=== PATIENT | male | born 1965 | race Caucasian/White ===

== ENCOUNTER 2016-06-27 20:34 | Observation (INO) | payer BC ==
--- NOTE | 2016-06-27 20:43 | PDOC ---
History of Present Illness - General History Source: Patient <Alfonso Anderson - Last Filed: 06/27/16 22:05> - General History Source: Patient Exam Limitations: No Limitations - History of Present Illness Initial Comments: 06/27/16 20:55 The patient is a 51 year old male with significant past medical history of CAD, s/p stents x2 (July 2015), hypertension, hyperlipidemia, diabetes and TIA who presents to the ED for 2 days of left sternal border chest pain. Patient describes his chest pain as nonradiating, pressure like sensation, squeezing in nature and 8/10, in severity. Denies exacerbating or alleviating factors. Denies diaphoresis, lightheadedness, SOB, shoulder pain, arm pain, jaw pain, nausea, or vomiting. States he is compliant with his medications. The patient denies fever, chills, cough, abdominal pain, and diarrhea. Allergies: nitroglycerine Social History: No alcohol, tobacco, or drug use reported. Past Surgical History: s/p cardiac stents x2 (July 2015), R knee and L ankle sx PCP: Dr. Latoya Bullock School Bus Driver: Dr. Vergara <Hoa Suarez - Last Filed: 06/27/16 22:35> - General Chief Complaint: Chest Pain Stated Complaint: CHEST PAIN Time Seen by Provider: 06/27/16 20:43 Past History - Past Medical History Diabetes: Yes GI Disorders: Yes (COLITIS) HTN: Yes - Surgical History Orthopedic Surgery: Yes (R. Knee, L. Ankle) - Immunization History Immunization Up to Date: Yes - Psycho/Social/Smoking Cessation Hx Anxiety: No Suicidal Ideation: No Smoking Status: No Smoking History: Never smoked Have you smoked in the past 12 months: No Number of Cigarettes Smoked Daily: 0 Cigars Per Day: 0 Hx Alcohol Use: No Drug/Substance Use Hx: No Substance Use Type: None Hx Substance Use Treatment: No <Alfonso Anderson - Last Filed: 06/27/16 22:05> <Hoa Suarez - Last Filed: 06/27/16 22:35> - Past Medical History Allergies/Adverse Reactions: Allergies Allergy/AdvReac Type Severity Reaction Status Date / Time nitroglycerin Allergy Verified 06/27/16 20:42 Home Medications: Ambulatory Orders Clopidogrel Bisulfate [Plavix -] 75 mg PO DAILY #30 tablet 08/06/15 Cyclobenzaprine HCl [Flexeril -] 5 mg PO Q8H PRN #30 tablet 08/06/15 Metformin HCl [Glucophage -] 1,000 mg PO BID@0700,1630 #60 tablet 08/06/15 Ramipril [Altace] 5 mg PO DAILY #30 capsule 08/06/15 Aspirin [ASA -] 81 mg PO DAILY 08/24/15 Atorvastatin Ca [Lipitor] 10 mg PO DAILY 08/24/15 Duloxetine HCl [Cymbalta] 20 mg PO DAILY 08/24/15 Glimepiride 2 mg PO BID 08/24/15 Insulin Detemir [Levemir Flextouch] 0 unit SQ BID 08/24/15 Meloxicam 7.5 mg PO PRN 08/24/15 Metoprolol Succinate [Toprol Xl] 50 mg PO DAILY 08/24/15 Review of Systems - Review of Systems Able to Perform ROS?: Yes Comments:: 06/27/16 20:55 CONSTITUTIONAL: Absent: fever, chills, diaphoresis, generalized weakness, malaise, loss of appetite HEENT: Absent: rhinorrhea, nasal congestion, throat pain, throat swelling, difficulty swallowing, mouth swelling, ear pain, eye pain, visual Changes CARDIOVASCULAR: +left sternal border chest pain Absent: syncope, palpitations, irregular heart rate, lightheadedness, peripheral edema RESPIRATORY: Absent: cough, shortness of breath, dyspnea with exertion, orthopnea, wheezing, stridor, hemoptysis GASTROINTESTINAL: Absent: abdominal pain, abdominal distension, nausea, vomiting, diarrhea, constipation, melena, hematochezia GENITOURINARY: Absent: dysuria, frequency, urgency, hesitancy, hematuria, flank pain, genital pain MUSCULOSKELETAL: Absent: myalgia, arthralgia, joint swelling SKIN: Absent: rash, itching, pallor NEUROLOGIC: Absent: headache, focal weakness or paresthesias, dizziness, unsteady gait, seizure, mental status changes, bladder or bowel incontinence <Hoa Suarez - Last Filed: 06/27/16 22:35> *Physical Exam - Vital Signs Last Vital Signs Temp Pulse Resp BP Pulse Ox 98.6 F 97 H 16 155/90 99 06/27/16 20:42 06/27/16 20:42 06/27/16 20:42 06/27/16 20:42 06/27/16 20:42 - Physical Exam Comments: 06/27/16 20:55 GENERAL: Well developed, well nourished. Awake and alert. Mild distress. HEENT: Normocephalic, atraumatic. PERRLA, EOMI. No conjunctival pallor. Sclera are non- icteric. Moist mucous membranes. Oropharynx is clear. NECK: Supple. Full ROM. No JVD. Carotid pulses 2+ and symmetric, without bruits. No thyromegaly. No lymphadenopathy. CARDIOVASCULAR: Regular rate and rhythm. No murmurs, rubs, or gallops. Distal pulses are 2+ and symmetric. PULMONARY: No evidence of respiratory distress. Lungs clear to auscultation bilaterally. No wheezing, rales or rhonchi. ABDOMINAL: Soft. Non-tender. Non-distended. No rebound or guarding. No organomegaly. Normoactive bowel sounds. MUSCULOSKELETAL Normal range of motion at all joints. No bony deformities or tenderness. No CVA tenderness. EXTREMITIES: No cyanosis. No clubbing. No edema. No calf tenderness. SKIN: Warm and dry. Normal capillary refill. No rashes. No jaundice. NEUROLOGICAL: Alert, awake, appropriate. Cranial nerves 2-12 intact. No deficits to light touch and temperature in face, upper extremities and lower extremities. No motor deficits in the in face, upper extremities and lower extremities. Normoreflexic in the upper and lower extremities. Normal speech. <Hoa Suarez - Last Filed: 06/27/16 22:35> Heart Score/ECG Review - ECG Impressions Comment:: 06/27/16 20:59 NSR with sinus arrhythmia @89bpm Possible L atrial enlargement Incomplete RBBB Borderline ECG <Hoa Suarez - Last Filed: 06/27/16 22:35> ED Treatment Course - LABORATORY CBC & Chemistry Diagram: 06/27/16 21:00 06/27/16 21:00 <Alfonso Anderson - Last Filed: 06/27/16 22:05> - LABORATORY CBC & Chemistry Diagram: 06/27/16 21:00 06/27/16 21:00 <Hoa Suarez - Last Filed: 06/27/16 22:35> Medical Decision Making - Medical Decision Making 06/27/16 22:05 Dr. Anderson: The scribe's documentation has been prepared under my direction and personally reviewed by me in its entirery. I confirm that the note above accurately reflects all work, treatment, procedures, and medical decision making performed by me. <Alfonso Anderson - Last Filed: 06/27/16 22:05> - Medical Decision Making 06/27/16 22:[address] Latoya Bullock (via answering service) at 22:22 Awaiting call back 06/27/16 22:24 Patient's case discussed with Dr. Bullock at 22:24 <Hoa Suarez - Last Filed: 06/27/16 22:35> *DC/Admit/Observation/Transfer - Discharge Dispostion Admit: Yes <Alfonso Anderson - Last Filed: 06/27/16 22:05> - Attestations Scribe Attestion: 06/27/16 20:56 Documentation prepared by Hoa Suarez, acting as director medical science for Alfonso Anderson MD/DO <Hoa Suarez - Last Filed: 06/27/16 22:35> Diagnosis at time of Disposition: Chest pain Qualifiers: Chest pain type: unspecified Qualified Code(s): R07.9 - Chest pain, unspecified - Referrals
[2016-06-27 20:44] VITALS: BMI 32.3
[2016-06-27] MEDS ORDERED: METOPROLOL TARTRATE 5 MG/5 ML VIAL IVPUSH ONE (20:44)
[2016-06-27] MEDS ORDERED: NITROGLYCERIN 2% OINTMENT - 1GM PACKET TD ONE ×2 (20:44→21:17)
[2016-06-27] MEDS ORDERED: morphine CARPU-JECT 2 MG/1 ML DISP.SYRIN IVPUSH ONE (20:47)
[2016-06-27] MEDS ORDERED: ONDANSETRON 4 MG/2 ML VIAL IVPUSH STA (20:47)
[2016-06-27 21:10] LABS: BASOPHIL 1.3 % (0-2.0); EOSINOPHIL 0.8 % (0-4.5); MCH 23.8 pg (25.7-33.7); MCHC 32.2 g/dl (32.0-35.9); MEAN CELL VOLUME 73.8 fl (80-96); MEAN PLT VOLUME 8.9 fl (7.5-11.1); NEUTROPHILS 56.8 % (42.8-82.8); PLATELET COUNT 317 K/MM3 (134-434); WHITE BLOOD COUNT 9.3 K/mm3 (4.0-10.0)
[2016-06-27] MEDS ORDERED: morphine CARPU-JECT 2 MG/1 ML DISP.SYRIN ONE (21:16)
[2016-06-27] MEDS ORDERED: ONDANSETRON 4 MG/2 ML VIAL ONE (21:17)
[2016-06-27] MEDS ORDERED: METOPROLOL TARTRATE 5 MG/5 ML VIAL ONE (21:17)
[2016-06-27 21:29] LABS: INR 1.12 (0.82-1.09); PROTHROMBIN TIME (PATIENT) 12.3 SEC (9.98-11.88)
[2016-06-27 21:38] LABS: ALBUMIN 3.9 g/dl (3.4-5.0); ANION GAP 13 (8-16); BILIRUBIN,TOTAL 0.4 mg/dL (0.2-1.0); CALCIUM 9.3 mg/dL (8.5-10.1); CO2 24 mmol/L (21-32); COCKROFT - GAULT 121.79; CREATININE 0.9 mg/dL (0.7-1.3); GLUCOSE,RANDOM 174 mg/dL (74-106); MAGNESIUM 1.8 mg/dL (1.8-2.4); SGOT/AST 36 U/L (15-37); SGPT/ALT 81 U/L (12-78); TOT PROT 7.5 g/dl (6.4-8.2)
[2016-06-27 21:41] LABS: ALK PHOS 95 U/L (45-117); TROPONIN I < 0.02 ng/ml (0.00-0.05)
[2016-06-28] MEDS: INSULIN SLIDING SCALE (NOVOLOG) 1 VIAL SQ SCH ×3 (06:28→16:37)
[2016-06-28] MEDS: metFORMIN HCL 500 MG TABLET (FP) PO SCH ×2 (06:28→16:59)
[2016-06-28] MEDS ORDERED: GLIMEPIRIDE 2 MG TABLET (FP) PO SCH (07:00)
--- NOTE | 2016-06-28 08:01 | HP ---
Admitting History and Physical - Admission History of Present Illness: 51 year old male with significant past medical history of CAD, s/p stents x2 ( July 2015), hypertension, hyperlipidemia, diabetes and TIA who presents to the ED for 2 days of left sternal border chest pain. Patient describes his chest pain as nonradiating, pressure like sensation, squeezing in nature and 8/10, in severity. Denies exacerbating or alleviating factors. Denies diaphoresis, lightheadedness, SOB, shoulder pain, arm pain, jaw pain, nausea, or vomiting. States he is compliant with his medications. 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 Cardiovascular: Yes: CAD (S/P STENTING), HTN, Hyperlipdemia (pt denies) Gastrointestinal: Yes: Other (ROELLANA) Hepatobiliary: Yes: Other (ORELLANA) Musculoskeletal: Yes: Chronic low back pain, Other (chronic neck pain, left ankle pain since accident 4 years ago) Endocrine: Yes: Diabetes Mellitus - Past Surgical History Past Surgical History: Yes: None - Smoking History Smoking history: Never smoked Have you smoked in the past 12 months: No Aproximately how many cigarettes per day: 0 - Alcohol/Substance Use Hx Alcohol Use: No History of Substance Use: reports: None - Social History Occupation: Has not worked since the ankle accident 4 ya. 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 Home Medications - Allergies Allergies/Adverse Reactions: Allergies Allergy/AdvReac Type Severity Reaction Status Date / Time nitroglycerin Allergy Verified 06/27/16 20:42 - Home Medications Home Medications: Ambulatory Orders Clopidogrel Bisulfate [Plavix -] 75 mg PO DAILY #30 tablet 08/06/15 Cyclobenzaprine HCl [Flexeril -] 5 mg PO Q8H PRN #30 tablet 08/06/15 Metformin HCl [Glucophage -] 1,000 mg PO BID@0700,1630 #60 tablet 08/06/15 Ramipril [Altace] 5 mg PO DAILY #30 capsule 08/06/15 Aspirin [ASA -] 81 mg PO DAILY 08/24/15 Atorvastatin Ca [Lipitor] 80 mg PO DAILY 08/24/15 Duloxetine HCl [Cymbalta] 20 mg PO DAILY 08/24/15 Glimepiride 2 mg PO BID 08/24/15 Insulin Detemir [Levemir Flextouch] 0 unit SQ BID 08/24/15 Meloxicam 7.5 mg PO PRN 08/24/15 Metoprolol Succinate [Toprol Xl] 50 mg PO DAILY 08/24/15 Family Disease History - Family Disease History Family Disease History: CA: Mother (breast cancer) Review of Systems - Review of Systems Cardiovascular: reports: Chest Pain. denies: Edema Respiratory: reports: SOB, SOB on Exertion Gastrointestinal: denies: Abdominal Pain Genitourinary: reports: No Symptoms Neurological: reports: No Symptoms Physical Examination Vital Signs: Vital Signs Temperature 97.8 F 06/28/16 06:00 Pulse Rate 62 06/28/16 06:00 Respiratory Rate 18 06/28/16 06:00 Blood Pressure 139/70 06/28/16 06:00 O2 Sat by Pulse Oximetry (%) 97 06/28/16 04:02 Neck: Yes: Supple Cardiovascular: Yes: Regular Rate and Rhythm Respiratory: Yes: Regular, CTA Bilaterally Gastrointestinal: Yes: Normal Bowel Sounds, Soft Musculoskeletal: Yes: Other (CW TENDERNESS) Imaging - Results Chest X-ray: Report Reviewed Problem List - Problems (1) Chest pain Assessment/Plan: R/O ISTHMIC PAIN MAYBE COMPONENT OF MUSCULAR STRESS TEST Code(s): R07.9 - CHEST PAIN, UNSPECIFIED Qualifiers: Chest pain type: unspecified Qualified Code(s): R07.9 - Chest pain, unspecified (2) Diabetes Assessment/Plan: [facility] Code(s): E11.9 - TYPE 2 DIABETES MELLITUS WITHOUT COMPLICATIONS Qualifiers: Diabetes mellitus type: type 2 (3) HTN (hypertension) Assessment/Plan: MONITOR ON MEDS Code(s): I10 - ESSENTIAL (PRIMARY) HYPERTENSION (4) CAD (coronary artery disease) Assessment/Plan: S/P STENTING' CONTINUE WITH MEDS ABOVE Code(s): I25.10 - ATHSCL HEART DISEASE OF [place] CORONARY ARTERY W/O ANG PCTRS
[2016-06-28 08:05] LABS: BASOPHIL 0.9 % (0-2.0); MCH 23.7 pg (25.7-33.7); MCHC 32.2 g/dl (32.0-35.9); MEAN CELL VOLUME 73.5 fl (80-96); MEAN PLT VOLUME 8.4 fl (7.5-11.1); NEUTROPHILS 51.6 % (42.8-82.8); PLATELET COUNT 241 K/MM3 (134-434); RDW 17.9 % (11.9-15.9); WHITE BLOOD COUNT 6.3 K/mm3 (4.0-10.0)
[2016-06-28 08:30] LABS: ALBUMIN 3.5 g/dl (3.4-5.0); ANION GAP 6 (8-16); BILIRUBIN,TOTAL 0.4 mg/dL (0.2-1.0); CALCIUM 8.5 mg/dL (8.5-10.1); CHOLESTEROL 120 mg/dL (50-200); CO2 31 mmol/L (21-32); COCKROFT - GAULT 156.59; CREATININE 0.7 mg/dL (0.7-1.3); GLUCOSE,RANDOM 146 mg/dL (74-106); LDL CHOLESTEROL (ONLY SJRH) 72 mg/dL (5-100); SGOT/AST 34 U/L (15-37); SGPT/ALT 75 U/L (12-78)
[2016-06-28 08:32] LABS: ALK PHOS 86 U/L (45-117); TOT PROT 6.7 g/dl (6.4-8.2); TROPONIN I < 0.02 ng/ml (0.00-0.05)
[2016-06-28] MEDS ORDERED: ASPIRIN 81 MG CHEWABLE TABLETS PO SCH (10:00)
[2016-06-28] MEDS ORDERED: METOPROLOL SUCCINATE 50 MG TAB.SR.24H (FP) PO SCH (10:00)
[2016-06-28] MEDS ORDERED: ASPIRIN COATED 81 MG TABLET.EC PO SCH (10:00)
[2016-06-28] MEDS ORDERED: HEPARIN NA (PORCINE) 5,000 UNITS/ML 1ML VIAL SQ SCH (10:00)
[2016-06-28] MEDS ORDERED: CLOPIDOGREL BISULFATE 75 MG TABLET (FP) PO SCH (10:00)
[2016-06-28] MEDS ORDERED: RAMIPRIL 5 MG CAPSULE (FP) PO SCH (10:00)
[2016-06-28] MEDS ORDERED: DULoxetine HCL 20 MG CAPSULE.DR (FP) PO SCH (10:00)
--- NOTE | 2016-06-28 13:48 | CON.CARD ---
Consult Consult Specialty:: Cardiology Referred by:: Dr Bullock Reason for Consultation:: chest pain - History of Present Illness Chief Complaint: chest pain History of Present Illness: He is a 51 year old man 50 yo male with a history of NIDDMDM, HTN, hyperlipidemia, TIA (08/03/15 at [facility]), CAD, s/p PCI of RCA and PDA at [facility] [place] on 08/24/15 who was admitted with 3 days of nonexertional chest pain, along the left costochondral margin that is episodic and nonexertional, lasts about 5 minutes at a time and is different from his original anginal pain. No associated symptoms. No orthopnea pnd or edema. He underwent a nuclear stress test today 8:01 adriel to 86% MPHR, normal perfusion. EF 50%. 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 Cardio/Vascular: Yes: CAD (S/P STENTING), HTN, Hyperlipdemia (pt denies) Gastrointestinal: Yes: Other (ORELLANA) Hepatobiliary: Yes: Other (ORELLANA) Musculoskeletal: Yes: Chronic low back pain, Other (chronic neck pain, left ankle pain since accident 4 years ago) Endocrine: Yes: Diabetes Mellitus - Past Surgical History Past Surgical History: Yes: None - Alcohol/Substance Use Hx Alcohol Use: No History of Substance Use: reports: None - Smoking History Smoking history: Never smoked Have you smoked in the past 12 months: No Aproximately how many cigarettes per day: 0 - Social History Usual Living Arrangement: With Spouse (2nd ) Occupation: Has not worked since the ankle accident 4 ya. 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 Home Medications - Allergies Allergies/Adverse Reactions: Allergies Allergy/AdvReac Type Severity Reaction Status Date / Time nitroglycerin Allergy Verified 06/27/16 20:42 - Home Medications Home Medications: Ambulatory Orders Clopidogrel Bisulfate [Plavix -] 75 mg PO DAILY #30 tablet 08/06/15 Cyclobenzaprine HCl [Flexeril -] 5 mg PO Q8H PRN #30 tablet 08/06/15 Metformin HCl [Glucophage -] 1,000 mg PO BID@0700,1630 #60 tablet 08/06/15 Ramipril [Altace] 5 mg PO DAILY #30 capsule 08/06/15 Aspirin [ASA -] 81 mg PO DAILY 08/24/15 Atorvastatin Ca [Lipitor] 80 mg PO DAILY 08/24/15 Duloxetine HCl [Cymbalta] 20 mg PO DAILY 08/24/15 Glimepiride 2 mg PO BID 08/24/15 Insulin Detemir [Levemir Flextouch] 0 unit SQ BID 08/24/15 Meloxicam 7.5 mg PO PRN 08/24/15 Metoprolol Succinate [Toprol Xl] 50 mg PO DAILY 08/24/15 Family Disease History - Family Disease History Family History: Denies Family Disease History: CA: Mother (breast cancer) Review of Systems - Review of Systems Constitutional: reports: No Symptoms Eyes: reports: No Symptoms HENT: reports: No Symptoms Neck: reports: No Symptoms Cardiovascular: reports: Chest Pain Respiratory: reports: No Symptoms Gastrointestinal: reports: No Symptoms Vital Signs: Vital Signs Temperature 97.8 F 06/28/16 06:00 Pulse Rate 62 06/28/16 06:00 Respiratory Rate 18 06/28/16 06:00 Blood Pressure 139/70 06/28/16 06:00 O2 Sat by Pulse Oximetry (%) 97 06/28/16 04:02 Constitutional: Yes: Well Nourished, No Distress Eyes: Yes: Conjunctiva Clear HENT: Yes: Atraumatic, Normocephalic Neck: Yes: Supple, Trachea Midline Respiratory: Yes: CTA Bilaterally Gastrointestinal: Yes: Normal Bowel Sounds, Soft Cardiovascular: Yes: Regular Rate and Rhythm JVD: No Carotid Bruit: No PMI: Non-Displaced Heart Sounds: Yes: S1, S2 Edema: No Peripheral Pulses WNL: Yes - Other Data Labs, Other Data: CBC, BMP 06/28/16 05:40 06/28/16 05:40 INR, PTT INR 1.12 (0.82-1.09) 06/27/16 21:00 Troponin, BNP 06/28/16 05:40 Troponin I < 0.02 Troponin, BNP 06/28/16 05:40 Troponin I < 0.02 Imaging - Results Chest X-ray: Report Reviewed (matthew) EKG: Report Reviewed (no changes) Problem List - Problems (1) CAD (coronary artery disease) Assessment/Plan: stable on dual antiplatelet therapy. He needs at least one year. I doubt that this episode reflects angina. No further testing is needed as an inpatient. Code(s): I25.10 - ATHSCL HEART DISEASE OF [place] CORONARY ARTERY W/O ANG PCTRS Qualifiers: Coronary Disease-Associated Artery/Lesion type: [place] artery [place] vs. transplanted heart: [place] heart Associated angina: without angina Qualified Code(s): I25.10 - Atherosclerotic heart disease of [place] coronary artery without angina pectoris (2) Chest pain Assessment/Plan: Likely muscular. Treat with tylenol. No need for further inpatient cardiac workup. Code(s): R07.9 - CHEST PAIN, UNSPECIFIED Qualifiers: Chest pain type: unspecified Qualified Code(s): R07.9 - Chest pain, unspecified
[2016-06-28] MEDS ORDERED: PT OWN MED DRAWER 7, Y5N ONE (14:25)
[2016-06-28] MEDS ORDERED: ACETAMINOPHEN 325 MG TABLET (FP) ONE (14:34)
--- NOTE | 2016-06-28 17:20 | EKG ---
Test Reason : Blood Pressure : / mmHG Vent. Rate : 071 BPM Atrial Rate : 071 BPM P-R Int : 132 ms QRS Dur : 098 ms QT Int : 360 ms P-R-T Axes : 059 013 041 degrees QTc Int : 391 ms NORMAL SINUS RHYTHM NORMAL ECG WHEN COMPARED WITH ECG OF 27-JUN-2016 20:40, NO SIGNIFICANT CHANGE WAS FOUND Confirmed by CHARLIE HAAS MD ([id number]) on 06/28/2016 5:20:13 PM Referred By: TIGRE ESPOSITO Confirmed By:CHARLIE HAAS MD
--- NOTE | 2016-06-28 17:27 | EKG ---
Test Reason : Blood Pressure : / mmHG Vent. Rate : 089 BPM Atrial Rate : 089 BPM P-R Int : 132 ms QRS Dur : 102 ms QT Int : 336 ms P-R-T Axes : 054 010 034 degrees QTc Int : 408 ms NORMAL SINUS RHYTHM WITH SINUS ARRHYTHMIA POSSIBLE LEFT ATRIAL ENLARGEMENT INCOMPLETE RIGHT BUNDLE BRANCH BLOCK BORDERLINE ECG WHEN COMPARED WITH ECG OF 24-AUG-2015 14:28, NO SIGNIFICANT CHANGE WAS FOUND Confirmed by WALDO LAUGHLIN, CHARLIE ([id number]) on 06/28/2016 5:27:14 PM Referred By: Confirmed By:CHARLIE HAAS MD
[2016-06-28] MEDS ORDERED: IBUPROFEN 400 MG TABLET (FP) PO ONE (18:30)
[2016-06-28 19:25] VITALS: TEMP 98.3
[2016-06-28 20:34] VITALS: BP 126/80; PULSE 75
[2016-06-28] MEDS ORDERED: ATORVASTATIN CA 40 MG TABLET (FP) PO SCH (22:00)
== END 2016-06-28 20:51 | disposition home or self-care (01) ==
LOC: JER 20:34 → JERBED 22:04 → INTOOBSV 22:04 → J4W 06-28 03:08
PROVIDERS: ADMIT Family Medicine; ATTEND Family Medicine
PROC: 3E033NZ Introduction of Analgesics, Hypnotics, Sedatives into Peripheral Vein, Percutaneous Approach (ICD-10-PCS; principal; 2016-06-27)
PROC: 3E033GC Introduction of Other Therapeutic Substance into Peripheral Vein, Percutaneous Approach (ICD-10-PCS; 2016-06-27)
DX: R07.9 Chest pain, unspecified (principal); E11.9 Type 2 diabetes mellitus without complications; I10 Essential (primary) hypertension; I25.10 Atherosclerotic heart disease of native coronary artery without angina pectoris; Z95.5 Presence of coronary angioplasty implant and graft; E78.5 Hyperlipidemia, unspecified; Z86.73 Personal history of transient ischemic attack (TIA), and cerebral infarction without residual deficits
CPT/HCPCS: 36415; 71010-TC; 78452-TC; 80053; 80061; 82550; 83036; 83721; 83735; 84484; 85025; 85610; 93005; 93010; 93017; 99284-25; A9502; G0378

== ENCOUNTER 2018-03-31 08:10 | Day surgery (SDC) | payer BC ==
[2018-03-28 12:33] VITALS: BMI 31.3
[2018-03-31] MEDS ORDERED: PROPOFOL 20 ML ONE ×2 (11:07→14:07)
[2018-03-31] MEDS ORDERED: MIDAZOLAM HCL 2 MG/2 ML SINGLE DOSE VIAL ONE ×2 (11:07→13:40)
[2018-03-31] MEDS ORDERED: DEXAMETHASONE SOD PHOSPHATE 4 MG/1 ML VIAL ONE (11:08)
[2018-03-31] MEDS ORDERED: LIDOCAINE HCL/PF 2% SDV 5ML VIAL ONE ×2 (11:08→14:08)
[2018-03-31] MEDS ORDERED: ceFAZolin SODIUM 1 GM VIAL ONE (14:04)
[2018-03-31] MEDS ORDERED: ceFAZolin SODIUM 1 GM VIAL IVPB ONE (14:05)
[2018-03-31] MEDS ORDERED: ESMOLOL HCL 100,000 MCG/10 ML VIAL ONE (14:15)
[2018-03-31] MEDS ORDERED: KETOROLAC TROMETHAMINE 30 MG/1 ML VIAL ONE (14:24)
[2018-03-31] MEDS ORDERED: BUPIVACAINE HCL/PF 0.5% (5MG/ML) 10 ML VIAL IJ ONE (15:00)
[2018-03-31] MEDS ORDERED: BACITRACIN 15 GM TUBE TOPICAL OINTMENT TP ONE (15:01)
[2018-03-31] MEDS ORDERED: oxyCODONE HCL 5 MG TABLET PO PRN ×2 (15:12)
[2018-03-31] MEDS ORDERED: ONDANSETRON 4 MG/2 ML VIAL IVPUSH PRN (15:12)
[2018-03-31] MEDS ORDERED: LACTATED RINGERS SOLUTION 1,000 ML IV SCH (15:15)
[2018-03-31] MEDS ORDERED: GLYCOPYRROLATE 0.2 MG/1 ML VIAL ONE (16:24)
--- NOTE | 2018-03-31 17:07 | OP ---
Operative Note - Note: Operative Date: 03/31/18 Pre-Operative Diagnosis: penile deformity and phimosis Operation: circumcision and penoplasty Surgeon: Akira Baldwin Anesthesia: General Specimens Removed: preputial skin and area of glans penis
[2018-03-31 18:17] VITALS: TEMP 97.8
[2018-03-31 19:30] VITALS: BP 135/76; PULSE 82
--- NOTE | 2018-04-02 14:38 | PATH ---
Surgical Pathology Report Patient Name: SONIA SALOMON [facility]. Rec. #: [id number] /Age/Gender: 1965 (Age: 53) / M Account: [id number] Location: [facility] SURGICAL Taken: 03/31/2018 Received: 04/01/2018 Reported: 04/02/2018 Physicians: Akira Baldwin Specimen(s) Received A: FORESKIN B: GLANS PENIS Clinical History Phimosis Final Diagnosis A. FORESKIN, CIRCUMCISION: FORESKIN. B. GLANS PENIS, EXCISION: GENITAL SKIN WITH MILD CHRONIC INFLAMMATION. Electronically Signed Meche Davis M.D. Gross Description A. Received in formalin labeled "foreskin," are 3 farley, irregular, wrinkled portions of skin, consistent with foreskin. The specimens range from 1.3 x 0.3 x 0.1 cm to 2.5 x 1.6 x 1.2 cm. No discrete lesions are identified. Government Program Manager sections are submitted in one cassette. B. Received in formalin labeled "glans penis" is a 0.5 x 0.3 x 0.2 cm farley, irregular portion of soft tissue. The specimen is submitted in toto in one cassette. 04/01/201804/01/2018
--- NOTE | 2018-04-11 09:59 | OP ---
DATE OF OPERATION: 03/31/2018 REOPERATIVE DIAGNOSES: Penile deformity and phimosis. POSTOPERATIVE DIAGNOSES: Penile deformity and phimosis. PROCEDURE: Circumcision and penoplasty. ATTENDING: Mana Wall MD ANESTHESIA: General: OPERATION WENT FOLLOWS: The patient has a history of a significant phimosis with recurrent scarring of the frenulum causing penile curvature. The patient is undergoing a circumcision and penoplasty to correct these 2 entities. The patient and his family have been given all the risks and benefits of the procedure. They agreed to the procedure in order to minimize further injury to the penis. The patient was brought in the operating room, placed in supine position on the operating room table. Antibiotics were given preoperatively for surgical prophylaxis. The patient's status as to allergies to medication is noted. At this point, the patient was prepped and draped in the usual sterile manner. The distal preputial skin is excised utilizing the guillotine technique. At this point, the proximal penile skin below the glans is cut to allow a 1.5 cm fringe below the glans. The frenulum and scarred aspects of the glans are excised and sent for specimen. At this point, hemostasis is obtained utilizing electrocauterization circumferentially. A stay stitch is placed in the glans at the level of the frenular insertion. With traction, the glans is then reapproximated with interrupted chromic stitches. A 2-layer closure is utilized for the glans. At this point, the subcutaneous tissue is reapproximated circumferentially. With this accomplished, interrupted chromic stitches are placed circumferentially to reapproximate the penile skin. Excellent hemostasis was obtained, no complications were noted. A dressing is placed at the end of the procedure. The stay suture is removed. Marcaine was injected preoperatively and postoperatively in order to minimize anesthesia. MANA WALL M.D. [id number]
== END 2018-03-31 19:15 | disposition home or self-care (01) ==
LOC: JASU-SURG 08:10
PROVIDERS: ATTEND Urology
PROC: 0VTTXZZ Resection of Prepuce, External Approach (ICD-10-PCS; principal; 2018-03-31 10:00)
PROC: 0VNS0ZZ Release Penis, Open Approach (ICD-10-PCS; 2018-03-31 10:00)
DX: N47.1 Phimosis (principal); Q55.61 Curvature of penis (lateral)
CPT/HCPCS: 82962; 88304-TC; 94760

== ENCOUNTER 2020-04-06 16:54 | Inpatient (IN) | payer BC ==
[2020-04-06 18:29] LABS: BASO % 0.6 % (0-2.0); HEMATOCRIT 45.5 % (35.4-49); HEMOGLOBIN 15.3 GM/dL (11.7-16.9); LYMPH % 22.7 % (8-40); MCH 29.6 pg (25.7-33.7); MCHC 33.7 g/dl (32.0-35.9); MEAN CELL VOLUME 87.9 fl (80-96); MEAN PLT VOLUME 8.2 fl (7.5-11.1); MONO % 11.6 % (3.8-10.2); NEUT % 65.1 % (42.8-82.8); PLATELET COUNT 207 K/MM3 (134-434); RBC 5.18 M/mm3 (4.00-5.60); RDW 15.4 % (11.9-15.9); WHITE BLOOD COUNT 3.7 K/mm3 (4.0-10.0)
[2020-04-06 18:41] LABS: INR 1.24 (0.83-1.09); PROTHROMBIN TIME (PATIENT) 15.1 SEC (9.7-13.0)
[2020-04-06 18:56] LABS: POTASSIUM 4.2 mmol/L (3.5-5.1)
[2020-04-06 18:58] LABS: ALBUMIN 3.2 g/dl (3.4-5.0); BLOOD UREA NITROGEN 14.9 mg/dL (7-18); CALCIUM 8.7 mg/dL (8.5-10.1)
[2020-04-06 19:02] LABS: CREATININE 0.8 mg/dL (0.55-1.3)
[2020-04-06 19:03] LABS: TOT PROT 7.1 g/dl (6.4-8.2)
[2020-04-06 19:07] LABS: BILIRUBIN,TOTAL 0.6 mg/dL (0.2-1)
[2020-04-06] MEDS ORDERED: ACETAMINOPHEN 1000 MG/100 ML VIAL (NON FORMULARY) IVPB ONE (23:41)
[2020-04-07] MEDS ORDERED: PANTOPRAZOLE 40 MG TABLET ONE ×2 (02:44→11:40)
[2020-04-07] MEDS: SODIUM CHLORIDE 1,000 ML IV SCH (03:00)
[2020-04-07] MEDS: PANTOPRAZOLE 40 MG TABLET PO SCH ×2 (03:00→11:44)
[2020-04-07 08:13] LABS: HEMATOCRIT 43.5 % (35.4-49); HEMOGLOBIN 14.6 GM/dL (11.7-16.9); MCH 29.5 pg (25.7-33.7); MCHC 33.5 g/dl (32.0-35.9); MEAN CELL VOLUME 88.1 fl (80-96); MEAN PLT VOLUME 8.6 fl (7.5-11.1); PLATELET COUNT 179 K/MM3 (134-434); RBC 4.94 M/mm3 (4.00-5.60); RDW 15.2 % (11.9-15.9); WHITE BLOOD COUNT 3.3 K/mm3 (4.0-10.0)
[2020-04-07 08:27] LABS: POTASSIUM 4.6 mmol/L (3.5-5.1)
[2020-04-07 08:33] LABS: BLOOD UREA NITROGEN 14.3 mg/dL (7-18); CALCIUM 8.5 mg/dL (8.5-10.1)
[2020-04-07 08:37] LABS: CREATININE 0.9 mg/dL (0.55-1.3)
[2020-04-07] MEDS ORDERED: ENOXAPARIN NA (PORCINE) 40 MG/0.4 ML DISP.SYRIN SQ SCH (10:00)
[2020-04-07] MEDS ORDERED: RAMIPRIL 5 MG CAPSULE ONE (11:40)
[2020-04-07] MEDS: RAMIPRIL 5 MG CAPSULE PO SCH (11:44)
[2020-04-07 17:36] VITALS: BMI 27.3
[2020-04-08] MEDS ORDERED: morphine SULFATE 4 MG/ML VIAL IVPUSH ONE (00:56)
[2020-04-08] MEDS ORDERED: guaiFENesin 200 MG/10 ML 10 ML UNIT-DOSE CUPS PO ONE (01:10)
[2020-04-08] MEDS: SODIUM CHLORIDE 1,000 ML IV SCH (01:14)
[2020-04-08] MEDS ORDERED: ACETAMINOPHEN 1000 MG/100 ML VIAL (NON FORMULARY) IVPB PRN (09:30)
[2020-04-08] MEDS: DEXAMETHASONE SOD PHOSPHATE 4 MG/1 ML VIAL IVPUSH SCH (10:49)
[2020-04-08] MEDS: ASCORBIC ACID 500 MG TABLET (FP) PO SCH ×2 (10:49→21:29)
[2020-04-08] MEDS: ASPIRIN COATED 81 MG TABLET.EC PO SCH (10:49)
[2020-04-08] MEDS: ZINC SULFATE 220 MG CAPSULE (FP) PO SCH (10:50)
[2020-04-08] MEDS: RAMIPRIL 5 MG CAPSULE PO SCH (10:50)
[2020-04-08] MEDS: FAMOTIDINE 20 MG/50 ML IVPB 20 MG/50 ML MG IVPB SCH ×2 (10:50→21:29)
[2020-04-08] MEDS: CHOLECALCIFEROL (VIT D3) 1,000 UNIT (25 MCG) TABLET PO SCH (10:50)
[2020-04-08] MEDS ORDERED: REMDESIVIR 200 MG in SODIUM CHLORIDE 210 ML IVPB ONE (12:30)
[2020-04-08] MEDS: HYDROCORTISONE ACETATE 25 MG/SUPP.RECT PR SCH (21:33)
[2020-04-08] MEDS: INSULIN SLIDING SCALE (NOVOLOG) 1 VIAL SQ SCH (22:00)
[2020-04-09] MEDS: INSULIN SLIDING SCALE (NOVOLOG) 1 VIAL SQ SCH ×4 (06:44→21:58)
[2020-04-09] MEDS ORDERED: BISACODYL 5 MG TABLET.DR (FP) PO PRN (08:25)
[2020-04-09] MEDS: DEXAMETHASONE SOD PHOSPHATE 4 MG/1 ML VIAL IVPUSH SCH (09:19)
[2020-04-09] MEDS: FAMOTIDINE 20 MG/50 ML IVPB 20 MG/50 ML MG IVPB SCH ×2 (09:19→21:59)
[2020-04-09] MEDS: ASPIRIN COATED 81 MG TABLET.EC PO SCH (09:20)
[2020-04-09] MEDS: ASCORBIC ACID 500 MG TABLET (FP) PO SCH ×2 (09:20→21:59)
[2020-04-09] MEDS: ZINC SULFATE 220 MG CAPSULE (FP) PO SCH (09:20)
[2020-04-09] MEDS: RAMIPRIL 5 MG CAPSULE PO SCH (09:21)
[2020-04-09] MEDS: CHOLECALCIFEROL (VIT D3) 1,000 UNIT (25 MCG) TABLET PO SCH (09:21)
[2020-04-09] MEDS: guaiFENesin 200 MG/10 ML 10 ML UNIT-DOSE CUPS PO PRN (09:23)
[2020-04-09 10:27] LABS: BASO % 0.3 % (0-2.0); HEMATOCRIT 44.2 % (35.4-49); HEMOGLOBIN 15.1 GM/dL (11.7-16.9); LYMPH % 15.4 % (8-40); MCH 29.7 pg (25.7-33.7); MCHC 34.2 g/dl (32.0-35.9); MEAN PLT VOLUME 8.4 fl (7.5-11.1); MONO % 9.9 % (3.8-10.2); NEUT % 74.4 % (42.8-82.8); PLATELET COUNT 226 K/MM3 (134-434); RBC 5.08 M/mm3 (4.00-5.60); RDW 14.8 % (11.9-15.9); WHITE BLOOD COUNT 5.1 K/mm3 (4.0-10.0)
[2020-04-09] MEDS ORDERED: INSULIN (NOVOLOG) ASPART 100 UNITS/ML 10ML VIAL ONE (11:03)
[2020-04-09 11:07] LABS: ALBUMIN 2.8 g/dl (3.4-5.0); BLOOD UREA NITROGEN 18.1 mg/dL (7-18); CREATININE 0.8 mg/dL (0.55-1.3)
[2020-04-09 11:09] LABS: BILIRUBIN,TOTAL 0.5 mg/dL (0.2-1); TOT PROT 6.7 g/dl (6.4-8.2)
[2020-04-09 11:11] LABS: CALCIUM 8.9 mg/dL (8.5-10.1)
[2020-04-09 11:17] LABS: POTASSIUM 3.8 mmol/L (3.5-5.1)
[2020-04-09] MEDS: REMDESIVIR 100 MG in SODIUM CHLORIDE 230 ML IVPB SCH (12:18)
[2020-04-09] MEDS ORDERED: MELATONIN 5 MG TABLETS PO PRN (22:00)
[2020-04-09] MEDS: HYDROCORTISONE ACETATE 25 MG/SUPP.RECT PR SCH (22:01)
[2020-04-10] MEDS: guaiFENesin 200 MG/10 ML 10 ML UNIT-DOSE CUPS PO PRN ×2 (03:34→21:37)
[2020-04-10] MEDS: INSULIN SLIDING SCALE (NOVOLOG) 1 VIAL SQ SCH ×4 (06:20→21:26)
[2020-04-10] MEDS ORDERED: ACETAMINOPHEN 325 MG TABLET (FP) PO PRN (09:06)
[2020-04-10] MEDS: FAMOTIDINE 20 MG/50 ML IVPB 20 MG/50 ML MG IVPB SCH (09:12)
[2020-04-10] MEDS: CHOLECALCIFEROL (VIT D3) 1,000 UNIT (25 MCG) TABLET PO SCH (09:12)
[2020-04-10] MEDS: ASCORBIC ACID 500 MG TABLET (FP) PO SCH ×2 (09:12→21:22)
[2020-04-10] MEDS: DEXAMETHASONE SOD PHOSPHATE 4 MG/1 ML VIAL IVPUSH SCH (09:13)
[2020-04-10] MEDS: ASPIRIN COATED 81 MG TABLET.EC PO SCH (09:13)
[2020-04-10] MEDS: ZINC SULFATE 220 MG CAPSULE (FP) PO SCH (09:13)
[2020-04-10] MEDS: RAMIPRIL 5 MG CAPSULE PO SCH (09:20)
[2020-04-10] MEDS: POLYETHYLENE GLYCOL 3350 119 GM BTL PO SCH (09:24)
[2020-04-10] MEDS ORDERED: FAMOTIDINE 10 MG TABLET PO SCH (10:15)
[2020-04-10 10:17] LABS: BASO % 0.2 % (0-2.0); EOS % 0.3 % (0-4.5); HEMATOCRIT 44.5 % (35.4-49); HEMOGLOBIN 15.2 GM/dL (11.7-16.9); LYMPH % 19.1 % (8-40); MCH 29.6 pg (25.7-33.7); MCHC 34.1 g/dl (32.0-35.9); MEAN CELL VOLUME 86.9 fl (80-96); MEAN PLT VOLUME 8.6 fl (7.5-11.1); MONO % 9.8 % (3.8-10.2); NEUT % 70.6 % (42.8-82.8); PLATELET COUNT 252 K/MM3 (134-434); RBC 5.12 M/mm3 (4.00-5.60); RDW 14.7 % (11.9-15.9); WHITE BLOOD COUNT 5.5 K/mm3 (4.0-10.0)
[2020-04-10 10:45] LABS: POTASSIUM 3.6 mmol/L (3.5-5.1)
[2020-04-10 10:55] LABS: ALBUMIN 2.9 g/dl (3.4-5.0); BLOOD UREA NITROGEN 19.4 mg/dL (7-18); CREATININE 0.8 mg/dL (0.55-1.3)
[2020-04-10 10:56] LABS: BILIRUBIN,TOTAL 0.6 mg/dL (0.2-1); CALCIUM 8.7 mg/dL (8.5-10.1)
[2020-04-10 10:57] LABS: TOT PROT 6.8 g/dl (6.4-8.2)
[2020-04-10] MEDS: REMDESIVIR 100 MG in SODIUM CHLORIDE 230 ML IVPB SCH (13:03)
[2020-04-10] MEDS: HYDROCORTISONE ACETATE 25 MG/SUPP.RECT PR SCH (21:22)
[2020-04-11] MEDS: INSULIN SLIDING SCALE (NOVOLOG) 1 VIAL SQ SCH ×4 (06:22→22:14)
[2020-04-11 08:33] LABS: BASO % 0.2 % (0-2.0); EOS % 0.1 % (0-4.5); HEMATOCRIT 39.6 % (35.4-49); HEMOGLOBIN 13.4 GM/dL (11.7-16.9); LYMPH % 17.5 % (8-40); MCH 29.7 pg (25.7-33.7); MCHC 33.9 g/dl (32.0-35.9); MEAN CELL VOLUME 87.7 fl (80-96); MEAN PLT VOLUME 9.1 fl (7.5-11.1); MONO % 10.8 % (3.8-10.2); NEUT % 71.4 % (42.8-82.8); PLATELET COUNT 220 K/MM3 (134-434); RBC 4.51 M/mm3 (4.00-5.60); WHITE BLOOD COUNT 6.1 K/mm3 (4.0-10.0)
[2020-04-11 09:00] LABS: POTASSIUM 3.4 mmol/L (3.5-5.1)
[2020-04-11 09:05] LABS: ALBUMIN 2.5 g/dl (3.4-5.0); BLOOD UREA NITROGEN 17.4 mg/dL (7-18); CALCIUM 8.5 mg/dL (8.5-10.1)
[2020-04-11 09:09] LABS: BILIRUBIN,DIRECT 0.3 mg/dL (0.0-0.2); CREATININE 0.6 mg/dL (0.55-1.3)
[2020-04-11 09:10] LABS: BILIRUBIN,TOTAL 0.9 mg/dL (0.2-1); TOT PROT 5.9 g/dl (6.4-8.2)
[2020-04-11] MEDS ORDERED: FAMOTIDINE 20 MG TABLET PO SCH ×2 (10:00→15:23)
[2020-04-11] MEDS: ASCORBIC ACID 500 MG TABLET (FP) PO SCH ×2 (11:12→22:10)
[2020-04-11] MEDS: POLYETHYLENE GLYCOL 3350 119 GM BTL PO SCH (11:14)
[2020-04-11] MEDS: DEXAMETHASONE SOD PHOSPHATE 4 MG/1 ML VIAL IVPUSH SCH (11:15)
[2020-04-11] MEDS: ASPIRIN COATED 81 MG TABLET.EC PO SCH (11:15)
[2020-04-11] MEDS: RAMIPRIL 5 MG CAPSULE PO SCH (11:15)
[2020-04-11] MEDS: CHOLECALCIFEROL (VIT D3) 1,000 UNIT (25 MCG) TABLET PO SCH (11:16)
[2020-04-11] MEDS: ZINC SULFATE 220 MG CAPSULE (FP) PO SCH (11:16)
[2020-04-11] MEDS: REMDESIVIR 100 MG in SODIUM CHLORIDE 230 ML IVPB SCH (13:10)
[2020-04-11] MEDS ORDERED: PT OWN MED DRAWER 7, Y5N ONE (22:07)
[2020-04-11] MEDS: HYDROCORTISONE ACETATE 25 MG/SUPP.RECT PR SCH (23:11)
[2020-04-12] MEDS: INSULIN SLIDING SCALE (NOVOLOG) 1 VIAL SQ SCH ×2 (06:21→11:56)
[2020-04-12] MEDS: guaiFENesin 200 MG/10 ML 10 ML UNIT-DOSE CUPS PO PRN (06:23)
[2020-04-12] MEDS ORDERED: REMDESIVIR 100 MG in SODIUM CHLORIDE 230 ML IVPB ONE (10:00)
[2020-04-12] MEDS ORDERED: PT OWN MED DRAWER 7, Y5N ONE (11:29)
[2020-04-12] MEDS: ZINC SULFATE 220 MG CAPSULE (FP) PO SCH (11:41)
[2020-04-12] MEDS: ASPIRIN COATED 81 MG TABLET.EC PO SCH (11:41)
[2020-04-12] MEDS: DEXAMETHASONE SOD PHOSPHATE 4 MG/1 ML VIAL IVPUSH SCH (11:41)
[2020-04-12] MEDS: POLYETHYLENE GLYCOL 3350 119 GM BTL PO SCH (11:42)
[2020-04-12] MEDS: CHOLECALCIFEROL (VIT D3) 1,000 UNIT (25 MCG) TABLET PO SCH (11:43)
[2020-04-12] MEDS: RAMIPRIL 5 MG CAPSULE PO SCH (11:45)
[2020-04-12] MEDS ORDERED: INSULIN (NOVOLOG) ASPART 100 UNITS/ML 10ML VIAL ONE (11:50)
[2020-04-12] MEDS: ASCORBIC ACID 500 MG TABLET (FP) PO SCH (12:26)
[2020-04-12 14:43] VITALS: BP 134/83; PULSE 111; TEMP 98.1
[2020-04-14 13:07] LABS: HEP B CORE AB, TOT Negative (Negative)
== END 2020-04-12 16:08 | disposition home or self-care (01) | DRG 177 ==
LOC: JER 16:54 → JERBED 22:44 → J8W 04-07 16:07
PROVIDERS: ADMIT Hospitalist; ATTEND Internal Medicine
PROC: XW13325 Transfusion of Convalescent Plasma (Nonautologous) into Peripheral Vein, Percutaneous Approach, New Technology Group 5 (ICD-10-PCS; principal; 2020-04-08)
PROC: XW033E5 Introduction of Remdesivir Anti-infective into Peripheral Vein, Percutaneous Approach, New Technology Group 5 (ICD-10-PCS; 2020-04-08)
DX: U07.1 COVID-19 (principal); J12.82 Pneumonia due to coronavirus disease 2019; J96.01 Acute respiratory failure with hypoxia; K92.2 Gastrointestinal hemorrhage, unspecified; I10 Essential (primary) hypertension; E78.5 Hyperlipidemia, unspecified; I25.10 Atherosclerotic heart disease of native coronary artery without angina pectoris; R16.0 Hepatomegaly, not elsewhere classified; K59.09 Other constipation; G47.00 Insomnia, unspecified; E11.9 Type 2 diabetes mellitus without complications; D72.819 Decreased white blood cell count, unspecified; Z95.5 Presence of coronary angioplasty implant and graft; Z86.73 Personal history of transient ischemic attack (TIA), and cerebral infarction without residual deficits
CPT/HCPCS: 36415; 36430; 71045-TC-FY; 74177-TC; 80048; 80053; 80076; 82272; 82308; 82728; 82962; 83605; 83615; 85025; 85027; 85379; 85610; 85651; 86140; 86704; 86705; 86706; 86707; 86803; 86850; 86900; 86901; 87804; 87899; 93005; 93010; 94010; 99285-25; C9399; C9803; J0131; P9017; Q9967; U0003

== ENCOUNTER 2022-08-08 15:21 | Emergency (ER) | payer BC, OTHER ==
[2022-08-08 15:40] VITALS: BP 140/90; PULSE 79; RESP 18; TEMP 98.1; BMI 26.5
[2022-08-08] MEDS ORDERED: OXYMETAZOLINE 0.05% NASAL SOLUTION 15 ML BOTTLE NS ONE ×2 (18:05→18:09)
== END 2022-08-08 18:16 | disposition home or self-care (01) ==
LOC: FER 15:21
DX: R04.0 Epistaxis (principal)
CPT/HCPCS: 99283-25

== ENCOUNTER 2022-12-12 23:11 | Observation (INO) | payer BC, OTHER ==
[2022-12-12 23:34] LABS: HEMATOCRIT 48.5 % (35.4-49); MCHC 32.9 g/dl (32.0-35.9); MEAN CELL VOLUME 91.2 fl (80-96); MEAN PLT VOLUME 8.6 fl (7.5-11.1); PLATELET COUNT 203.8 10^3/uL (134-434); RBC 5.32 10^6/uL (4.00-5.60); RDW 14.6 % (11.9-15.9); WHITE BLOOD COUNT 9.7 10^3/uL (4.0-10.8)
[2022-12-12] MEDS ORDERED: ASPIRIN 81 MG CHEWABLE TABLETS PO ONE (23:53)
[2022-12-12] MEDS ORDERED: ASPIRIN 325 MG TABLET ONE (23:54)
[2022-12-13 00:41] LABS: POTASSIUM 3.8 mmol/L (3.5-5.1)
[2022-12-13 00:43] LABS: ALBUMIN 3.8 g/dl (3.4-5.0); BLOOD UREA NITROGEN 17.9 mg/dL (7-18); MAGNESIUM 1.9 mg/dL (1.8-2.4)
[2022-12-13 00:46] LABS: CREATININE 0.9 mg/dL (0.55-1.3)
[2022-12-13 00:47] LABS: BILIRUBIN,TOTAL 0.5 mg/dL (0.2-1)
[2022-12-13 00:48] LABS: TOT PROT 7.4 g/dl (6.4-8.2)
[2022-12-13] MEDS ORDERED: DOCUSATE SODIUM 100 MG CAPSULE (FP) PO PRN (01:36)
[2022-12-13] MEDS ORDERED: ACETAMINOPHEN 1000 MG/100 ML BAG IVPB PRN (01:40)
[2022-12-13 02:34] VITALS: BMI 28.4
[2022-12-13 03:01] LABS: INR 1.17 (0.83-1.09); PROTHROMBIN TIME (PATIENT) 13.5 SEC (9.7-13.0)
[2022-12-13 03:03] LABS: ACTIVATED PTT 36.4 SECONDS (25.2-36.5)
[2022-12-13] MEDS: INSULIN SLIDING SCALE (NOVOLOG) 1 VIAL SQ SCH ×4 (08:07→21:28)
[2022-12-13 08:23] LABS: INR 1.11 (0.83-1.09); PROTHROMBIN TIME (PATIENT) 12.9 SEC (9.7-13.0)
[2022-12-13] MEDS: DULoxetine HCL 20 MG CAPSULE.DR PO SCH (09:17)
[2022-12-13] MEDS: RAMIPRIL 5 MG CAPSULE PO SCH (09:17)
[2022-12-13] MEDS: PANTOPRAZOLE 20 MG TABLET PO SCH (09:17)
[2022-12-13] MEDS: amLODIPine BESYLATE 2.5 MG TABLET (FP) PO SCH (09:17)
[2022-12-13 09:31] LABS: BASO % 0.2 % (0-2.0); EOS % 1.7 % (0-4.5); HEMATOCRIT 43.4 % (35.4-49); LYMPH % 19.5 % (8-40); MCH 30.6 pg (25.7-33.7); MCHC 34.6 g/dl (32.0-35.9); MEAN CELL VOLUME 88.5 fl (80-96); MEAN PLT VOLUME 8.5 fl (7.5-11.1); MONO % 16.3 % (3.8-10.2); NEUT % 62.3 % (42.8-82.8); PLATELET COUNT 198 10^3/uL (134-434); RDW 14.7 % (11.9-15.9); WHITE BLOOD COUNT 7.4 K/mm3 (4.0-10.0)
[2022-12-13 09:32] LABS: POTASSIUM 3.8 mmol/L (3.5-5.1)
[2022-12-13 09:54] LABS: CALCIUM 8.7 mg/dL (8.5-10.1)
[2022-12-13 09:58] LABS: CREATININE 0.9 mg/dL (0.55-1.3)
[2022-12-13] MEDS ORDERED: ROSUVASTATIN CA 5 MG TABLET PO SCH (22:00)
[2022-12-13] MEDS ORDERED: EZETIMIBE 10 MG TABLET (FP) PO SCH (22:00)
[2022-12-14] MEDS ORDERED: ACETAMINOPHEN 325 MG TABLET (FP) PO PRN (01:36)
[2022-12-14 02:06] VITALS: RESP 18
[2022-12-14] MEDS: INSULIN SLIDING SCALE (NOVOLOG) 1 VIAL SQ SCH ×2 (06:31→11:45)
[2022-12-14] MEDS ORDERED: GLIMEPIRIDE 4 MG TABLET PO SCH (07:00)
[2022-12-14] MEDS: amLODIPine BESYLATE 2.5 MG TABLET (FP) PO SCH (09:41)
[2022-12-14] MEDS: RAMIPRIL 5 MG CAPSULE PO SCH (09:41)
[2022-12-14] MEDS: DULoxetine HCL 20 MG CAPSULE.DR PO SCH (09:41)
[2022-12-14] MEDS: PANTOPRAZOLE 20 MG TABLET PO SCH (09:41)
[2022-12-14 14:35] VITALS: BP 113/66; PULSE 76; TEMP 97.5
[2022-12-15] MEDS ORDERED: GLIMEPIRIDE 2 MG TABLET PO SCH (07:00)
== END 2022-12-14 15:18 | disposition home or self-care (01) ==
LOC: FER 23:11 → FM/S 12-13 01:54
PROVIDERS: ADMIT Internal Medicine; ATTEND Family Medicine
PROC: 3E033NZ Introduction of Analgesics, Hypnotics, Sedatives into Peripheral Vein, Percutaneous Approach (ICD-10-PCS; principal; 2022-12-13)
DX: I25.110 Atherosclerotic heart disease of native coronary artery with unstable angina pectoris (principal); I11.0 Hypertensive heart disease with heart failure; G30.0 Alzheimer's disease with early onset; F02.80 Dementia in other diseases classified elsewhere, unspecified severity, without behavioral disturbance, psychotic disturbance, mood disturbance, and anxiety; E11.9 Type 2 diabetes mellitus without complications; E78.5 Hyperlipidemia, unspecified; F41.9 Anxiety disorder, unspecified; G89.29 Other chronic pain; M54.2 Cervicalgia; M25.572 Pain in left ankle and joints of left foot; Z95.5 Presence of coronary angioplasty implant and graft; K75.81 Nonalcoholic steatohepatitis (NASH); Z88.8 Allergy status to other drugs, medicaments and biological substances
CPT/HCPCS: 36415; 71045-TC-FY; 78452-TC; 80048; 80053; 82550; 82962; 83735; 84100; 84484; 85025; 85027; 85379; 85610; 85730; 93005; 93010; 93017; 99285-25; A9502; G0378